=== PATIENT | female | born 2000 | race Two or more races ===

== ENCOUNTER 2024-11-25 08:29 | Outpatient (REF) | payer OTHER, SELFPAY ==
[2024-11-25 13:45] LABS: MANUAL DIFF FLAG NO
[2024-11-25 13:49] LABS: Appearance Urine Turbid; Glucose Urine UA Negative (Negative); PH 5.5 (5.0-9.0); Specific Gravity - Urine 1.025 (1.005-1.025); UMIC TRIGGER UACC YES
[2024-11-25 13:54] LABS: Hematocrit 38.7 % (37.0-47.0); Hemoglobin 12.9 g/dl (12.0-16.0); Imm Gran Abs Auto 0.03 X10*3/uL (0.00-0.03); Imm Gran Pct Auto 0.4 % (0.0-0.4); Lymphocytes Absolute Auto 2.0 X10*3/uL (1.2-4.9); Mean Corpuscular HGB Conc 33.3 g/dl (31.0-35.0); Mean Corpuscular Hemoglobin 30.5 pg (27.0-33.0); Mean Corpuscular Volume 91.5 fL (80.0-98.0); NRBC Abs Auto 0.000 X10*3/uL (0.0-0.012); NRBC Pct Auto 0.0 /100WBC (0.0-0.2); Platelet Count 349 X10*3/uL (160-400); Red Blood Count 4.23 X10*6/uL (4.20-5.50); White Blood Count 8.4 X10*3/uL (4.8-10.8)
[2024-11-25 13:56] LABS: UACC Culture Trigger YES
[2024-11-25 13:57] LABS: Total Hemoglobin (HGBA1C) 3319.7994 umol/L
[2024-11-25 14:34] LABS: Folate 7.9 ng/mL (> or = 4.0); Vitamin B12 441 pg/mL (200-900)
[2024-11-25 14:46] LABS: Alanine Aminotransferase 17 U/L (0-31); Albumin Level 4.2 g/dL (3.5-5.0); Alkaline Phosphatase 50 U/L (39-117); Anion Gap 10 (12-20); Aspartate Amino Transferase 26 U/L (5-31); Blood Urea Nitrogen 10 mg/dL (9-16); Calcium 9.1 mg/dL (8.4-10.2); Carbon Dioxide 25 mmol/L (22-29); Chloride 111 mmol/L (96-108); Cholesterol 151 mg/dL (<200); Estimated Glomerular Filt Rate > 60; HDL Cholesterol 41 mg/dL (>40); Magnesium 2.1 mg/dL (1.6-2.6); Potassium 4.6 mmol/L (3.3-5.1); Sodium 141 mmol/L (135-145); Total Protein 7.7 g/dL (6.5-8.0); Triglycerides 69 mg/dL (<150)
[2024-11-26 05:09] LABS: HBS Num1 112.36 mIU/mL (0-7.99); HBsAGNum1 0.36 S/CO (0.00-0.99); HIV Num 1 0.42 S/CO (0.00-0.99); Hepatitis B Surface Antigen Negative (Negative); ~HepC Num1 0.18 S/CO (0.00-0.79); ~Hepatitis B Surface Antibody REACTIVE (Nonreactive); ~Hepatitis C Antibody Nonreactive (Nonreactive)
[2024-11-29 19:18] LABS: VITAMIN D (1,25 OH) D3 48 pg/mL; Vit D (1,25-Dihydroxy) Total 48 pg/mL (18-72); Vitamin D (1,25 OH) D2 <8 pg/mL
== END 2024-11-25 08:30 | disposition home or self-care (01) ==
LOC: HO.HKASLDS 08:29
PROVIDERS: Visit Provider Student in an Organized Health Care Education/Training Program
DX: Z76.89 Persons encountering health services in other specified circumstances (principal); Z13.9 Encounter for screening, unspecified; Z13.1 Encounter for screening for diabetes mellitus; Z13.220 Encounter for screening for lipoid disorders; Z13.6 Encounter for screening for cardiovascular disorders; Z11.4 Encounter for screening for human immunodeficiency virus [HIV]; Z11.3 Encounter for screening for infections with a predominantly sexual mode of transmission; Z13.31 Encounter for screening for depression; Z71.9 Counseling, unspecified; F84.0 Autistic disorder
CPT/HCPCS: 36415; 80053; 80061; 81001; 82607; 82652; 82746; 83036; 83735; 85025; 86706; 86803; 87086; 87340; 87389

== ENCOUNTER 2024-11-25 08:29 | Outpatient (AMB) | payer OTHER, SELFPAY ==
--- NOTE | 2024-11-25 08:55 | A.OFFPC_ITS ---
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 Tech Required: No Accompanied by: Self / Same As Patient Allergies No Known Allergies Allergy (Verified 11/25/24 08:56) Tobacco use date assessed: 11/25/24 Dental Screening Dental Screen Date: 11/25/24 Did you have a dental visit in the last 12 months?: Yes Did you have a dental problem in the last 6 months where you did not have access to dental care?: No Was dental information given to patient?: Patient has dentist HPI HPI Comments History of Present Illness Details History of Present Illness The patient is a 24-year-old female presenting with a routine physical examination and preventative care assessment. Autism Spectrum Disorder: - Diagnosed at age 6, received therapy i ncluding physical and occupational therapy until high school. Swollen Cheek: - Swelling noted on the left cheek, prev iously treated with antibiotics, no pain or fever reported. Review of Systems - General: Denies fever, chills - Gastrointestinal: Denies abdominal christine n - Oral: Reports swollen left cheek, andrei es pain 10-point ROS reviewed and negative excep t as noted in HPI Past Medical History - Autism Spectrum Disorder, diagnosed at age 6 Health Maintenance - Comprehensive metabolic panel, lipid p dae, and cervical cancer screening discussed Physical Exam General: Well-appearing, in no acute distress. Vital signs: Within normal limits. HEENT: Normocephalic, atraumatic. PERRLA, EOMI. Conjunctiva clear, sclera anicteric. Oropharynx clear, mucous membranes moist. TMs intact bilaterally. Notable for a swollen left cheek, previously treated with antibiotics. Neck: Supple, no lymphadenopathy, no thyromegaly, no JVD or carotid bruits. Cardiovascular: RRR, normal S1/S2, no murmurs, rubs, or gallops. Peripheral pulses 2+ and symmetric. No edema. Respiratory: Lungs clear to auscultation bilaterally, no wheezes, rales, or rhonchi. Normal effort. Abdomen: Soft, non-tender, non-distended. Normoactive bowel sounds. No hepatosplenomegaly, no masses. MSK: Full range of motion, no joint swelling or deformity. Normal gait. Skin: Warm, dry, intact. No rashes, lesions, or pallor. Neuro: Alert and oriented x3. Cranial nerves II-XII intact. Strength 5/5 throughout. Sensation intact. Reflexes 2+ symmetric. Normal coordination and gait. Psych: Appropriate mood and affect. Normal judgment and insight. Plan 1. Autism Spectrum Disorder - Continue monitoring developmental prog ress and consider further therapy if needed. 2. Swollen Cheek - Follow-up with dental care as needed, monitor for any recurrence of symptoms. Discussion Notes During the visit, I discussed the importance of routine screenings, including a comprehensive metabolic panel, lipid panel, and cervical cancer screening. I explained the procedure for a Pap smear and its role in detecting cervical cancer. We also talked about the follow-up plan for the swollen cheek, emphasizing the need for dental care if symptoms persist. Patient was informed and verbally consented to the use of an ambient scribe for clinic note documentation during this visit. Patient Instructions - Schedule a follow-up appointment for l ab results in two weeks. - Consider scheduling a Pap smear for ce rvical cancer screening. - Monitor the swollen cheek and seek den joao care if symptoms persist. PFSH Family History (Updated 11/25/24 @ 09:24 by Deyanira Stock MA) Mother H/O: obesity H/O inguinal hernia Social History (Updated 11/25/24 @ 08:57 by Deyanira Stock MA) Housing: Apartment Alcohol intake: current Alcohol intake frequency: does not drink Patient Tobacco Use Status: Never used Tobacco service: No Current occupational status: disabled Cognitive needs: No Hearing needs: No Vision needs: Yes (rx glasses) Questionnaire PHQ-9 Over the last 2 weeks, how often have you been bothered by any of the following problems? 1. Little interest or pleasure in doing things: not at all 2. Feeling down, depressed, or hopeless: not at all 3. Trouble falling or staying asleep, or sleeping too much: not at all 4. Feeling tired or having little energy: not at all 5. Poor appetite or overeating: not at all 6. Feeling bad about yourself - or that you are a failure or have let yourself or your family down: not at all 7. Trouble concentrating on things, such as reading the newspaper or watching television: not at all 8. Moving or speaking so slowly that other people could have noticed. Or the opposite - being so fidgety or restless that you have been moving around a lot more than usual: not at all 9. Thoughts that you would be better off or of hurting yourself in some way: not at all Total score: 0 Depression Screening Interpretation: Negative Depression Screening Done: Yes Source: Developed by Drs. Fredrick Moore, Wanda Mcadams, Suresh Rose and colleagues, with an educational subhash from [employer]. Thrive Questionnaire Date Thrive assessed: 11/25/24 I am a: Patient What is your living situation today?: I have a steady place to live Within the past 12 months, did the food you bought not last and you didn't have the money to get more?: Never true Within the past 12 months, did you worry whether your food would run out before you got money to buy more?: Never true Do you have trouble paying for medicines?: No Do you have trouble getting transportation to medical appointments?: No Do you have trouble paying your heating and electricity bill?: No Do you have trouble taking care of your child, family member or friend?: No Do you have trouble with day-to-day activities such as bathing, preparing meals, shopping, managing finances, etc.?: No Are you currently unemployed and looking for a job?: No Are you interested in more education?: No Please select the resources that you would like help with: None Currently or been in a relationship where the following occur: No concerns reported THRIVE Score: 0 AUDIT C Alcohol Use Questionnaire (AUDIT-C) 1. How often do you have a drink containing alcohol?: Never 3. How often do you have six or more drinks on one occasion?: Never Total Score: 0 CODY-7 AMB Questionnaire CODY-7 Date CODY - 7 assessed: 11/25/24 Feeling nervous, anxious, or on edge: 0 = Not at all Not being able to stop or control worryin = Not at all Worrying too much about different things: 0 = Not at all Trouble relaxin = Not at all Being so restless that it is hard to sit still: 0 = Not at all Becoming easily annoyed or irritable: 0 = Not at all Feeling afraid as if something awful might happen: 0 = Not at all Total CODY-7 score (0-4 normal; 5-9 mild; 10-14 moderate; 15-21 severe): 0 Source: Developed by Drs. Fredrick Moore, Wanda Mcadams, Suresh Rose and colleagues, with an educational subhash from [employer]. Physical exam (Primary Care) Tobacco/Smoking Status: Tobacco use Status Tobacco use date assessed 11/25/24 11/25/24 08:58 Patient Tobacco Use Status Never used Tobacco 11/25/24 08:58 PHQ-9: PHQ-9 Score PHQ-9: Total score 0 11/25/24 08:58 Depression Screening Interpretation: Negative Thrive Assessment: Date of Thrive Assessment Date Thrive assessed 11/25/24 11/25/24 08:58 Currently or been in a relationship where the following occur: No concerns reported Coding Level of Care Code New Pt Level 3 (68796) Diagnoses Establishing care with new doctor, encounter for Z76.89 Encounter for screening, unspecified Z13.9 Counseling, unspecified Z71.9 Screening for diabetes mellitus Z13.1 Screening for lipoid disorders Z13.220 Screening for hypertension Z13.6 Screening for HIV (human immunodeficiency virus) Z11.4 Routine screening for STI (sexually transmitted infection) Z11.3 Screening for depression Z13.31 Autism spectrum F84.0 Assessment & Plan Assessment & Plan (1) Establishing care with new doctor, encounter for: Code(s): Z76.89 - Persons encountering health services in other specified circumstances (2) Encounter for screening, unspecified: Code(s): Z13.9 - Encounter for screening, unspecified (3) Counseling, unspecified: Code(s): Z71.9 - Counseling, unspecified (4) Screening for diabetes mellitus: Code(s): Z13.1 - Encounter for screening for diabetes mellitus (5) Screening for lipoid disorders: Code(s): Z13.220 - Encounter for screening for lipoid disorders (6) Screening for hypertension: Code(s): Z13.6 - Encounter for screening for cardiovascular disorders (7) Screening for HIV (human immunodeficiency virus): Code(s): Z11.4 - Encounter for screening for human immunodeficiency virus [HIV] (8) Routine screening for STI (sexually transmitted infection): Code(s): Z11.3 - Encounter for screening for infections with a predominantly sexual mode of transmission (9) Screening for depression: Code(s): Z13.31 - Encounter for screening for depression (10) Autism spectrum: Code(s): F84.0 - Autistic disorder Plan
[2024-11-25 09:20] VITALS: BP 108/63; PULSE 85; RESP 16; TEMP 36.5; O2SAT 100; BMI 32.7
== END 2024-11-25 09:44 | disposition home or self-care (01) ==
PROVIDERS: PCP Student in an Organized Health Care Education/Training Program; Visit Provider Student in an Organized Health Care Education/Training Program
DX: Z00.00 Encounter for general adult medical examination without abnormal findings (principal); F84.0 Autistic disorder

== ENCOUNTER 2024-12-09 08:35 | Outpatient (REF) | payer OTHER, SELFPAY ==
[2024-12-09 13:18] LABS: Appearance Urine Cloudy; Glucose Urine UA Negative (Negative); PH 7.5 (5.0-9.0); Specific Gravity - Urine 1.025 (1.005-1.025); UMIC TRIGGER UACC YES
[2024-12-09 13:25] LABS: MANUAL DIFF FLAG NO; UACC Culture Trigger YES
[2024-12-09 13:33] LABS: Hematocrit 41.0 % (37.0-47.0); Hemoglobin 13.2 g/dl (12.0-16.0); Imm Gran Abs Auto 0.02 X10*3/uL (0.00-0.03); Imm Gran Pct Auto 0.3 % (0.0-0.4); Lymphocytes Absolute Auto 2.3 X10*3/uL (1.2-4.9); Mean Corpuscular HGB Conc 32.2 g/dl (31.0-35.0); Mean Corpuscular Hemoglobin 30.2 pg (27.0-33.0); Mean Corpuscular Volume 93.8 fL (80.0-98.0); NRBC Abs Auto 0.000 X10*3/uL (0.0-0.012); NRBC Pct Auto 0.0 /100WBC (0.0-0.2); Platelet Count 384 X10*3/uL (160-400); Red Blood Count 4.37 X10*6/uL (4.20-5.50); White Blood Count 6.9 X10*3/uL (4.8-10.8)
[2024-12-09 13:54] LABS: Alanine Aminotransferase 18 U/L (0-31); Albumin Level 4.5 g/dL (3.5-5.0); Alkaline Phosphatase 62 U/L (39-117); Anion Gap 11 (12-20); Aspartate Amino Transferase 27 U/L (5-31); Blood Urea Nitrogen 13 mg/dL (9-16); Calcium 9.6 mg/dL (8.4-10.2); Carbon Dioxide 29 mmol/L (22-29); Chloride 108 mmol/L (96-108); Cholesterol 171 mg/dL (<200); Estimated Glomerular Filt Rate > 60; HDL Cholesterol 46 mg/dL (>40); Potassium 5.4 mmol/L (3.3-5.1); Sodium 143 mmol/L (135-145); Total Protein 8.2 g/dL (6.5-8.0); Triglycerides 83 mg/dL (<150)
[2024-12-09 14:26] LABS: Folate 7.7 ng/mL (> or = 4.0); Vitamin B12 550 pg/mL (200-900)
[2024-12-10 04:03] LABS: HBS Num1 131.45 mIU/mL (0-7.99); HBsAGNum1 0.26 S/CO (0.00-0.99); Hepatitis B Surface Antigen Negative (Negative); ~HepC Num1 0.16 S/CO (0.00-0.79); ~Hepatitis B Surface Antibody REACTIVE (Nonreactive); ~Hepatitis C Antibody Nonreactive (Nonreactive)
[2024-12-13 11:44] LABS: VITAMIN D (1,25 OH) D3 23 pg/mL; Vit D (1,25-Dihydroxy) Total 23 pg/mL (18-72); Vitamin D (1,25 OH) D2 <8 pg/mL
== END 2024-12-09 08:36 | disposition home or self-care (01) ==
LOC: HO.HKASLDS 08:35
PROVIDERS: PCP Student in an Organized Health Care Education/Training Program; Visit Provider Student in an Organized Health Care Education/Training Program
DX: Z13.29 Encounter for screening for other suspected endocrine disorder (principal); Z13.6 Encounter for screening for cardiovascular disorders; Z13.1 Encounter for screening for diabetes mellitus; Z11.59 Encounter for screening for other viral diseases; Z13.89 Encounter for screening for other disorder
CPT/HCPCS: 36415; 80053; 80061; 81001; 82607; 82652; 82746; 83036; 84443; 85025; 86706; 86803; 87086; 87340

== ENCOUNTER 2024-12-26 08:23 | Outpatient (AMB) | payer MEDICARE, SELFPAY ==
[2024-12-26 08:25] VITALS: BP 121/63; PULSE 88; TEMP 36.8; O2SAT 98; BMI 32.9
--- NOTE | 2024-12-26 08:25 | A.OFFPC_ITS ---
Vital Signs 12/26/24 08:25 Height 5 ft 5.55 in Weight 201 lb BMI 32.9 BP 121/63 Blood Pressure Location Lt brachial Position Sitting Pulse 88 Pulse Source Pulse Oximeter Temp 98.3 F Temp Source Oral Pulse Oximetry (%) 98 Intake Visit Reasons: follow up labs Sales Enablement Specialist Required: No Accompanied by: Grand Parent Allergies No Known Allergies Allergy (Verified 12/26/24 08:25) Tobacco use date assessed: 12/26/24 Dental Screening Dental Screen Date: 12/26/24 Did you have a dental visit in the last 12 months?: Yes Did you have a dental problem in the last 6 months where you did not have access to dental care?: No Was dental information given to patient?: Patient has dentist HPI HPI Comments History of Present Illness Details History of Present Illness The patient is a 24 year old female presenting for a review of her laboratory results. Allergic Rhinitis: The patient has a history of allergies and was previously on medication for them, possibly Claritin, while living in [place]. She experiences allergy sym ptoms in her current location, and reports that [id number] medications are not effective. Hyperlipidemia: The patient reports she was fasting when her blood was drawn. Her diet includes cheese. Hyperkalemia: This is a new finding on recent labs. Regarding her diet, the patient eats bananas sometimes and reports frequent consumption of potatoes. Vitamin D Insufficiency: This is a new finding based on recent lab work. Asymptomatic Bacteriuria: The patient denies any urinary symptoms, including urinary frequency, dysuria, or pelvic pain. Medications: - The patient was previously on Claritin for allergies but is not currently taking any allergy medication. Social History: - Diet: Reports eating bananas sometimes , a lot of bread, and potatoes. - She also consumes cheese, as well as r ice, beans, and meat. - Beliefs: The patient identifies as [facility] istian and does not celebrate Halloween. Diagnostic Results: - Complete Blood Count (CBC): Normal [facility] te blood cells, red blood cells, hemoglobin, and platelets with no signs of anemia. - Allergy-related cells were noted to be slightly elevated. - Comprehensive Metabolic Panel (CMP): S odium was good, and potassium was slightly high. - Renal function, calcium, and liver fun ction were all normal. - Diabetes screening: Hemoglobin A1c and random glucose were normal. - Lipid Panel (fasting): Total cholester ol was 171 mg/dL, triglycerides were good, and good cholesterol (HDL) was good. - Bad cholesterol (LDL) was 109 mg/dL. - Vitamin B12: Normal. - Vitamin D: 23. - Folate: Good. - Thyroid function: Good. - Urinalysis: Showed minor abnormalities consistent with asymptomatic bacteriuria. - Infectious Disease Screening: Negative for Hepatitis B, Hepatitis C, and HIV. Past Medical History - Allergic rhinitis, previously treated with medication (possibly Claritin) while in [place]. Health Maintenance - Recommended follow-up in 6 months to r echeck labs, including lipids. [facility] Medical History (Updated 12/26/24 @ 10:07 by Jesus Saleh MD) Class 1 obesity Asymptomatic bacteriuria Low vitamin D level Hyperkalemia Hyperlipidemia Allergic rhinitis Family History Mother H/O: obesity H/O inguinal hernia Social History Housing: Apartment Alcohol intake: current Alcohol intake frequency: does not drink Patient Tobacco Use Status: Never used Tobacco service: No Current occupational status: disabled Cognitive needs: No Hearing needs: No Vision needs: Yes (rx glasses) Questionnaire PHQ-9 Over the last 2 weeks, how often have you been bothered by any of the following problems? 1. Little interest or pleasure in doing things: not at all 2. Feeling down, depressed, or hopeless: not at all 3. Trouble falling or staying asleep, or sleeping too much: not at all 4. Feeling tired or having little energy: more than half the days 5. Poor appetite or overeating: more than half the days 6. Feeling bad about yourself - or that you are a failure or have let yourself or your family down: not at all 7. Trouble concentrating on things, such as reading the newspaper or watching television: not at all 8. Moving or speaking so slowly that other people could have noticed. Or the opposite - being so fidgety or restless that you have been moving around a lot more than usual: not at all 9. Thoughts that you would be better off or of hurting yourself in some way: not at all Total score: 4 Source: Developed by Drs. Fredrick Moore, Suresh Marie and colleagues, with an educational subhash from [employer]. Thrive Questionnaire Date Thrive assessed: 12/26/24 I am a: Parent/Caregiver What is your living situation today?: I have a steady place to live Within the past 12 months, did the food you bought not last and you didn't have the money to get more?: I choose not to answer this question Within the past 12 months, did you worry whether your food would run out before you got money to buy more?: Never true Do you have trouble paying for medicines?: No Do you have trouble getting transportation to medical appointments?: No Do you have trouble paying your heating and electricity bill?: No Do you have trouble taking care of your child, family member or friend?: No Do you have trouble with day-to-day activities such as bathing, preparing meals, shopping, managing finances, etc.?: Yes Are you currently unemployed and looking for a job?: No Are you interested in more education?: No Please select the resources that you would like help with: None Currently or been in a relationship where the following occur: No concerns reported THRIVE Score: 0 AUDIT C Alcohol Use Questionnaire (AUDIT-C) 1. How often do you have a drink containing alcohol?: Never 3. How often do you have six or more drinks on one occasion?: Never Total Score: 0 CODY-7 AMB Questionnaire CODY-7 Date CODY - 7 assessed: 12/26/24 Feeling nervous, anxious, or on edge: 0 = Not at all Not being able to stop or control worryin = Not at all Worrying too much about different things: 0 = Not at all Trouble relaxin = Not at all Being so restless that it is hard to sit still: 0 = Not at all Becoming easily annoyed or irritable: 0 = Not at all Feeling afraid as if something awful might happen: 0 = Not at all Total CODY-7 score (0-4 normal; 5-9 mild; 10-14 moderate; 15-21 severe): 0 Source: Developed by Wanda Torres Kurt Kroenke and colleagues, with an educational subhash from [employer]. Review of Systems Narrative Review of Systems - Constitutional: Reports feeling good. - Allergic/Immunologic: Reports allergy symptoms which she describes as similar to a cold or flu. - Genitourinary: Denies urinary frequency, dysuria, and pelvic pain. 10-point ROS reviewed and negative except as noted in HPI Physical exam (Primary Care) Vital Signs: Last Vital Signs Temp 98.3 F 12/26/24 08:25 Pulse 88 12/26/24 08:25 BP 121/63 12/26/24 08:25 Pulse Ox 98 12/26/24 08:25 BMI result Body Mass Index 32.9 Tobacco/Smoking Status: Tobacco use Status Tobacco use date assessed 12/26/24 12/26/24 08:26 Patient Tobacco Use Status Never used Tobacco 12/26/24 08:26 PHQ-9: PHQ-9 Score PHQ-9: Total score 4 12/26/24 08:42 Thrive Assessment: Date of Thrive Assessment Date Thrive assessed 12/26/24 12/26/24 08:26 Currently or been in a relationship where the following occur: No concerns reported Narrative Physical Exam General: Well-appearing, in no acute distress. Vital signs: Within normal limits. HEENT: Normocephalic, atraumatic. PERRLA, EOMI. Conjunctiva clear, sclera anicteric. Oropharynx clear, mucous membranes moist. TMs intact bilaterally. Neck: Supple, no lymphadenopathy, no thyromegaly, no JVD or carotid bruits. Cardiovascular: RRR, normal S1/S2, no murmurs, rubs, or gallops. Peripheral pulses 2+ and symmetric. No edema. Respiratory: Lungs clear to auscultation bilaterally, no wheezes, rales, or rhonchi. Normal effort. Abdomen: Soft, non-tender, non-distended. Normoactive bowel sounds. No hepatosplenomegaly, no masses. MSK: Full range of motion, no joint swelling or deformity. Normal gait. Skin: Warm, dry, intact. No rashes, lesions, or pallor. Neuro: Alert and oriented x3. Cranial nerves II-XII intact. Strength 5/5 throughout. Sensation intact. Reflexes 2+ symmetric. Normal coordination and gait. Psych: Appropriate mood and affect. Normal judgment and insight. Office Procedures Flu Questionnaire Does the patient have a severe egg allergy?: No Does the patient have severe life threatening allergies?: No Does the patient have a fever or illness today?: No Has the patient ever had Guillain-[place] Syndrome?: No Has the patient ever had any past reaction to a flu shot?: No Immunizations Fluarix [id number] (PF) 45 mcg (15 mcg x 3)/0.5 mL IM syringe Performing Provider: Jesus Saleh MD Performing Location: [facility] [place] Family [facility] Administered by: Lissy Aguilar CMA on 12/26/24 08:43 Dose Route Admin Location Dispensed Lot Number Expiration Date NDC Shuttle Inspector 0.5 mL IM Left Deltoid 0.5 mL [id number] 08/25/25 01489-562-54 Doximity VIS Given Date VIS Provided VIS Publication Date 12/26/24 Single Vaccine 24 Eligibility Eligibility Date Funding Source Not [facility] Eligible 12/26/24 Private Coding Level of Care Code Est Pt Level 4 (95225) Diagnoses Allergic rhinitis J30.9 Hyperlipidemia E78.5 Hyperkalemia E87.5 Low vitamin D level R79.89 Asymptomatic bacteriuria R82.71 Class 1 obesity E66.9 Assessment & Plan Assessment & Plan (1) Allergic rhinitis: Code(s): J30.9 - Allergic rhinitis, unspecified Category: Medical (2) Hyperlipidemia: Code(s): E78.5 - Hyperlipidemia, unspecified Category: Medical (3) Hyperkalemia: Code(s): E87.5 - Hyperkalemia Category: Medical (4) Low vitamin D level: Code(s): R79.89 - Other specified abnormal findings of blood chemistry Category: Medical (5) Asymptomatic bacteriuria: Code(s): R82.71 - Bacteriuria Category: Medical (6) Class 1 obesity: Code(s): E66.9 - Obesity, unspecified Category: Medical Plan Consent Patient was informed and verbally consented to the use of an ambient scribe for clinic note documentation during this visit. Plan 1. Allergic Rhinitis - Lab results indicate elevated allergy-related cells. - Prescribed cetirizine 10 mg tablets, to be taken one per day as needed for symptoms. - Sent a 90-day supply to the pharmacy. 2. Hyperlipidemia - Fasting LDL cholesterol is slightly elevated at 109 mg/dL. - Advised dietary modifications, including reducing consumption of cheese and fried foods. - Plan to recheck lipids in 6 months. 3. Hyperkalemia - Potassium level is slightly elevated. - Counseled patient to decrease intake of potassium-rich foods such as bananas, avocados, spinach, yogurt, oranges, and potatoes. - Will monitor with repeat labs in 6 months. 4. Vitamin D Insufficiency - Vitamin D level of 23 is low, just above the deficiency cutoff of 18. - Prescribed a vitamin D supplement to be taken once a week to prevent deficiency. 5. Asymptomatic Bacteriuria - Urinalysis shows findings consistent with bacteria in the urine, but the patient is asymptomatic. - No treatment is indicated at this time to avoid introducing antibiotics and building resistance. Discussion Notes I reviewed the patient's recent lab results with her and her mother. I explained that most of her results, including her complete blood count, kidney and liver function, and diabetes screening, were normal. I noted a slightly elevated potassium level and counseled her on reducing dietary sources like bananas and potatoes. Her LDL cholesterol was slightly elevated at 109, and I advised reducing intake of foods like cheese to manage this. Her vitamin D level was low at 23, so I prescribed a once-weekly supplement to prevent deficiency, especially with the changing seasons. Her urinalysis showed some bacteria, but as she is asymptomatic, I explained the rationale for not treating this to avoid antibiotic resistance. For her reported allergy symptoms, I prescribed cetirizine for daily use as needed. I confirmed that her infectious disease screenings were all negative. We agreed on a follow-up appointment in six months to recheck her labs and monitor her progress. Patient Instructions - Take one cetirizine 10 mg tablet each day as you need it for allergy symptoms like a runny or stuffy nose and watery eyes. - Take the prescribed vitamin D supplement once a week. - Try to eat less of foods high in potassium, such as bananas, potatoes, spin ach, and oranges. - To help your cholesterol, try to cut down on fried foods and cheese. - Your urine test showed some bacteria, but since you do not have symptoms like burning when you urinate, you do not need antibiotics at this time. - Please schedule a follow-up appointment in six months to have your labs checked again. Medical Decision Making The patient is a 24-year-old female who presented for a review of her recent laboratory work. The results were largely reassuring, with a normal CBC, renal function, liver function, and negative diabetes screening. Abnormalities included mild hyperkalemia, managed with dietary counseling; mildly elevated LDL cholesterol at 109, for which dietary modification is the appropriate first-line approach; and a low-normal vitamin D level of 23, warranting supplementation to prevent deficiency. The urinalysis revealed asymptomatic bacteriuria, and based on current clinical guidelines and the absence of symptoms, I determined that antibiotic treatment is not indicated to prevent the development of antibiotic resistance. The patient's history and elevated allergy-related cells on the CBC support a diagnosis of allergic rhinitis, for which I prescribed cetirizine for symptomatic relief. The plan is for conservative management with lifestyle and dietary adjustments, supplementation, and a follow-up in 6 months to monitor lipids and other markers. Total time spent caring for the patient today was 30 minutes. This includes time spent before the visit reviewing the chart, time spent documenting, and time spent reviewing laboratory results, diagnostic imaging, medications, performing a medically necessary evaluation, counseling on diagnoses, care coordination. Orders: Orders Influenza [id number] Immunization Today Z23 - Encounter for immunization Medications: New cetirizine 10 mg PO DAILY PRN 90 tabs 0RF allergy symptoms ergocalciferol (vitamin D2) 1,250 mcg PO QWEEK 12 caps 0RF
== END 2024-12-26 08:52 | disposition home or self-care (01) ==
LOC: HO.HMCFMS 08:23
PROVIDERS: PCP Student in an Organized Health Care Education/Training Program; Visit Provider Student in an Organized Health Care Education/Training Program
DX: J30.9 Allergic rhinitis, unspecified (principal); E78.5 Hyperlipidemia, unspecified; E87.5 Hyperkalemia; R79.89 Other specified abnormal findings of blood chemistry; R82.71 Bacteriuria; E66.9 Obesity, unspecified; Z23 Encounter for immunization

== ENCOUNTER → 2024-12-26 08:23 | Outpatient (BNVA) | payer MEDICARE, SELFPAY | PROVIDERS: PCP Student in an Organized Health Care Education/Training Program; Visit Provider Student in an Organized Health Care Education/Training Program | DX: J30.9 Allergic rhinitis, unspecified (principal); E78.5 Hyperlipidemia, unspecified; E55.9 Vitamin D deficiency, unspecified; R82.71 Bacteriuria; E66.9 Obesity, unspecified; Z23 Encounter for immunization; E87.5 Hyperkalemia; Z13.31 Encounter for screening for depression; Z13.39 Encounter for screening examination for other mental health and behavioral disorders | CPT/HCPCS: 90471; 90656; 96127; 99212 ==